=== PATIENT | male | born 1945 | race Caucasian/White ===

== ENCOUNTER 2018-08-03 07:32 | Outpatient (CLI) | payer BC ==
[2018-08-03 08:59] LABS: Mean Corpuscular HGB CONC 31.8 g/dL (32.0-36.0); Mean Corpuscular Hemoglobin 29.9 pg (27.0-31.0); Platelet Count 315 thou/uL (130-400); RBC Distribution Width 12.6 % (11.5-14.5); Red Blood Cell (RBC) Count 4.69 mill/uL (4.70-6.10); White Blood Cell (WBC) Count 7.9 thou/uL (4.8-10.8)
[2018-08-03 09:09] LABS: INR-International Normal Ratio 1.1; PTT 30.6 SEC (22.9-36.1); Prothrombin Time 13.9 SEC (12.0-14.7)
[2018-08-03 09:21] LABS: Anion Gap 12 mmol/L (10-20); BUN (Urea Nitrogen) 17 mg/dL (8.4-25.7); Calc. Creatinine Clearance 0 mL/min (70-130); Calcium 9.3 mg/dL (7.8-10.44); Carbon Dioxide 28 mmol/L (23-31); Chloride 106 mmol/L (98-107); Estimated GFR-MDRD Greater than 90; Glucose 104 mg/dL (80-115); Potassium 4.5 mmol/L (3.5-5.1); Sodium 141 mmol/L (136-145)
== END 2018-08-03 07:33 | disposition home or self-care (01) ==
LOC: LABBT 07:32
PROVIDERS: ATTEND Urology
DX: Z01.812 Encounter for preprocedural laboratory examination (principal); N21.0 Calculus in bladder
CPT/HCPCS: 80048; 85027; 85610; 85730

== ENCOUNTER 2018-08-04 05:56 | Day surgery (SDC) | payer BC ==
[2018-07-31 08:32] VITALS: BMI 20.5
[2018-08-04] MEDS ORDERED: Fentanyl 100 MCG/2 ML VIAL ONE ×3 (06:39→09:23)
[2018-08-04] MEDS ORDERED: Levofloxacin 500 mg/D5W 100 ml Premix Bag ONE (06:51)
[2018-08-04] MEDS ORDERED: Midazolam HCl 2 mg/2 ml Vial ONE (07:35)
[2018-08-04] MEDS ORDERED: traMADol HCl 50 MG TAB ONE (09:18)
--- NOTE | 2018-08-04 09:56 | OP ---
DATE OF PROCEDURE: 08/04/2018 PREOPERATIVE DIAGNOSIS: Bladder stone. POSTOPERATIVE DIAGNOSIS: Bladder stone. PROCEDURE: Cystoscopy, laser lithotripsy bladder stones. SURGEON: Dr. Mendel Merino ANESTHESIA: General. ESTIMATED BLOOD LOSS: Minimal. FINDINGS: There was a large, probably 3-4 cm, maybe larger than that justino stone. No other stones we re seen. He had a small diverticulum on the floor of the bladder. No stone fragments remained. He had 2 ureteral orifices that were clear. He had a large prostate was moderately large intravesical l obe. No evidence of stricture disease. He had no evidence of any bladder tumors. OPERATIVE TECHNIQUE: After obtaining written and verbal consent from the patient after receiving IV Levaquin, he was taken to the operating suite. He was placed in supine position on the treatment tab le. PlexiPulses placed on his lower extremities and turned on. He was given a general anesthetic, o ral obturator intubation. He was placed in the dorsal lithotomy position and he was sterilely preppe d and draped. Cystoscopy was performed with a 22-Swazi sheath. This was well lubricated, passed un sebastian direct vision through the male urethra into the urinary bladder with aid of a 30-degree lens and video camera and monitor. The bladder was filled and emptied a number of times and examined with bot h 30 and a 70 degree lens. At this point, we ahead and brought in a Holmium laser fiber, used this u nder direct vision to fragment the stone trying to keep the pieces quite small, so it is easily to be evacuated. After we had done this and broken it up, we elliked out the fragments, reinspected. We lasered a couple of the larger of the fragments still remaining until they were smaller. Elliked aga in, reinspected and found no significant stone fragments remaining. At this point, the instruments w ere removed. Christina catheter was sterilely inserted, 20 mL placed in the balloon with an 18-Swazi 10 mL balloon with 20 mL in it. It was hooked up to a leg bag. He was taken out of dorsal lithotomy p osition, awakened, extubated, and taken by stretcher to the recovery room.
[2018-08-04] MEDS ORDERED: Lidocaine 1% PF 5 ML VIAL ONE (12:32)
[2018-08-04] MEDS ORDERED: Dexamethasone 20 MG/5 ML VIAL ONE (12:32)
[2018-08-04] MEDS ORDERED: ePHEDrine/0.9% NaCl/PF SYRINGE 50 mg/10 ml ONE (12:32)
[2018-08-04] MEDS ORDERED: Ondansetron PF 4 MG/2 ML Vial ONE (12:32)
[2018-08-04] MEDS ORDERED: Metoclopramide HCl 10 MG/2 ML VIAL ONE (12:32)
[2018-08-04] MEDS ORDERED: PROPOFOL 200 MG/20 ML VIAL ONE (12:32)
== END 2018-08-04 11:35 | disposition home or self-care (01) ==
LOC: SDC 05:56
PROVIDERS: ATTEND Urology
PROC: 0TCB8ZZ Extirpation of Matter from Bladder, Via Natural or Artificial Opening Endoscopic (ICD-10-PCS; principal; 2018-08-04)
DX: N21.0 Calculus in bladder (principal); J44.9 Chronic obstructive pulmonary disease, unspecified; I25.10 Atherosclerotic heart disease of native coronary artery without angina pectoris; Z79.82 Long term (current) use of aspirin; Z79.02 Long term (current) use of antithrombotics/antiplatelets; Z79.899 Other long term (current) drug therapy
CPT/HCPCS: 82365; 88300; 96374; J1100; J1956; J2001; J2250; J2405; J2704; J2765; J3010

== ENCOUNTER 2018-08-08 17:11 | Emergency (ER) | payer BC ==
[2018-08-08] MEDS ORDERED: Lidocaine 4% Topical Sol 50 ML BOT ONE (17:20)
[2018-08-08 17:42] LABS: Bilirubin Negative (Negative); Blood, Urine Trace (Negative); Glucose, Urine (Dipstick) Negative (Negative); Leukocyte Negative (Negative); Nitrite Negative (Negative); Protein, Urine (Dipstick) Negative (Neg-Trace)
[2018-08-08 17:43] LABS: Clarity Hazy (Clear)
[2018-08-08 17:49] LABS: Bacteria/HPF Rare-Few HPF (None Seen); RBC/HPF 0-3 HPF (0-3); Squamous Epithelial None Seen HPF (0-3); WBC/HPF None Seen HPF (0-3)
== END 2018-08-08 18:10 | disposition home or self-care (01) ==
LOC: SCSER 17:11
DX: R33.9 Retention of urine, unspecified (principal)
CPT/HCPCS: 51702; 81003; 81015; 87086; J2001

== ENCOUNTER 2019-06-05 08:39 | Inpatient (IN) | payer BC ==
[2019-06-05 09:31] LABS: #Eosinphils 0.1 thou/uL (0.0-0.7); #Lymphocytes 1.3 thou/uL (1.20-3.40); #Monocytes 1.1 thou/uL (0.11-0.59); #Neutrophils 15.7 thou/uL (1.40-6.50); %Basophils 0.2 % (0.0-1.0); %Eosinophils 0.3 % (0.0-10.0); %Monocytes 5.9 % (0.0-10.0); %Neutrophils 86.6 % (42.0-75.0); Hemoglobin 14.6 g/dL (14.0-18.0); Mean Corpuscular HGB CONC 33.8 g/dL (32.0-36.0); Mean Corpuscular Hemoglobin 31.5 pg (27.0-31.0); Mean Corpuscular Volume 93.1 fL (78.0-98.0); Platelet Count 242 thou/uL (130-400); RBC Distribution Width 12.8 % (11.5-14.5); Red Blood Cell (RBC) Count 4.63 mill/uL (4.70-6.10); White Blood Cell (WBC) Count 18.1 thou/uL (4.8-10.8)
--- NOTE | 2019-06-05 09:44 | RAD ---
PORTABLE CHEST: HISTORY: Shortness of breath. Dizziness. COMPARISON: 03/28/2006 FINDINGS: Heart size is within normal limits. There are atherosclerotic changes of the aorta. The lungs are h yperexpanded. No focal infiltrative process is seen. IMPRESSION: 1. No active intrathoracic disease. 2. Mild hyperexpansion. POS: TPC
[2019-06-05 09:59] LABS: ALT (SGPT) 16 U/L (8-55); AST (SGOT) 17 U/L (5-34); Albumin 4.2 g/dL (3.4-4.8); Alkaline Phosphatase 64 U/L (40-150); Anion Gap 15 mmol/L (10-20); BUN (Urea Nitrogen) 30 mg/dL (8.4-25.7); Bilirubin, Total 0.7 mg/dL (0.2-1.2); Calc. Creatinine Clearance 0 mL/min (70-130); Carbon Dioxide 27 mmol/L (23-31); Chloride 105 mmol/L (98-107); Estimated GFR-MDRD 47; Globulin 2.5 g/dL (2.4-3.5); Glucose 124 mg/dL (83-110); Potassium 3.9 mmol/L (3.5-5.1); Protein, Total 6.7 g/dL (5.8-8.1); Sodium 143 mmol/L (136-145)
[2019-06-05 11:56] LABS: Bilirubin Negative (Negative); Blood, Urine 1+ (Negative); Clarity Turbid (Clear); Glucose, Urine (Dipstick) Normal (Negative); Leukocyte 250 Leu/uL (Negative); Nitrite Negative (Negative); Protein, Urine (Dipstick) 30 mg/dL (Neg-Trace); RBC/HPF 21-50 HPF (0-3); Urobilinogen Normal mg/dL (Less than 2); WBC/HPF 21-50 HPF (0-3)
[2019-06-05 12:10] LABS: Bacteria/HPF 3+ HPF (None Seen); Calcium Oxalate Crystals 1+ HPF (None Seen)
[2019-06-05] MEDS ORDERED: cefTRIAXone\\ROCEPHIN 2 GM VIAL ONE (12:48)
[2019-06-05] MEDS ORDERED: Ondansetron PF 4 MG/2 ML Vial IVP PRN (13:15)
[2019-06-05] MEDS ORDERED: NS 0.9% w/ 40 MEQ KCL 1,000 ML IV SCH ×2 (13:15→19:07)
[2019-06-05] MEDS ORDERED: Labetalol HCl 100 MG/20 ML VIAL SLOW IVP PRN (13:15)
[2019-06-05] MEDS ORDERED: Ondansetron ODT 4 MG TAB PO PRN (13:15)
[2019-06-05] MEDS ORDERED: Acetaminophen 500 MG TAB PO PRN (13:15)
[2019-06-05] MEDS ORDERED: HYDROcodone/Acetaminophen 5/325 mg Tablet PO PRN (13:15)
[2019-06-05 13:17] LABS: Troponin I 0.019 ng/mL (< 0.028)
[2019-06-05] MEDS ORDERED: Nicotine 14 MG PATCH TD SCH (14:00)
[2019-06-05 15:48] LABS: Troponin I 0.031 ng/mL (< 0.028)
[2019-06-05] MEDS: Mometasone/Formoterol 120 PUFF INHALER INH SCH (18:49)
[2019-06-05] MEDS ORDERED: Dronedarone HCl 400 MG TAB PO SCH (19:15)
[2019-06-05] MEDS: Mirtazapine 30 MG TAB PO SCH (20:45)
[2019-06-05] MEDS: Atorvastatin Calcium 10 MG TAB PO SCH (20:46)
[2019-06-05] MEDS: busPIRone HCl 10 MG TAB PO SCH (20:47)
[2019-06-05] MEDS: Enoxaparin Sodium 60 MG/0.6 ML SYRINGE SC SCH (20:48)
[2019-06-05] MEDS: Nicotine 14 MG PATCH TD SCH (20:50)
--- NOTE | 2019-06-05 23:28 | CON ---
DATE OF CONSULTATION: REASON FOR CONSULTATION: Shortness of breath, atrial fibrillation. PRIMARY TERRA COTTA ROOFER: Juana Castle MD HISTORY OF PRESENT ILLNESS: Mr. Julio is a very pleasant 73-year-old gentleman, came to the hospital, brought here by his daughter because he is having increasing trouble breathing. The patient is found to be in atrial fibrillation. Since then, he has been going in and out of fibrillation. His shortness of breath is much worse when he is in fibrillation, it appears and when he goes back in sinus rhythm, he feels like he is "breathing a lot easier." When he goes into atrial fibrillation, the rate is 120 beats per minute on the EKG. The patient is currently in sinus rhythm and says he is feeling much better. PAST MEDICAL HISTORY: 1. History of COPD. 2. He has a history of atrial flutter, ablated many years ago by Dr. Vera. The ablation was done in 2004. 3. I do not see any evidence of coronary procedures. REVIEW OF SYSTEMS: CONSTITUTIONAL: Positive for weakness and fatigue. VISION: No changes. HEARING: No changes. PULMONARY: Positive for shortness of breath. CARDIAC: No chest pain or pressure. He does feel short of breath when he goes in the fibrillation. GI: No nausea, vomiting, or diarrhea. SKIN: No rashes. NEUROLOGIC: No unilateral weakness or numbness. PSYCHIATRIC: No unusual depression or anxiety. MEDICATIONS: At home; 1. He is on Plavix 75 mg a day. 2. Atorvastatin 10 mg a day. 3. Tamsulosin 0.4 mg a day. 4. Finasteride. PHYSICAL EXAMINATION: GENERAL: This is a very pleasant elderly gentleman. He is alert and oriented. He is very cooperative. VITAL SIGNS: Blood pressure 123/61, pulse 76, regular. HEENT: Eyes, sclerae are nonicteric. Mouth, mucous membranes are moist. NECK: Supple. No lymphadenopathy. LUNGS: Clear. No wheezing, rales, or rhonchi. CARDIAC: Normal S1, normal S2. There is no murmur, rub, or gallop. ABDOMEN: Soft, nontender. EXTREMITIES: Warm and dry. No clubbing. No cyanosis. There is no edema. DIAGNOSTIC STUDIES: EKG, he does have atrial fibrillation at times with rate of 120. Other times, the patient is in sinus rhythm. Reviewing the office records, he has had testing done. He had an echocardiogram done. He has had peripheral vascular disease and has had balloon dilatation of his iliacs, it appears and left superficial femoral, also the right iliac, that was in 2018. I do not see the actual echo report. He had a stress test done in 2018 showing no ischemia. ASSESSMENT: 1. Paroxysmal atrial fibrillation associated with worsening breathing. 2. Peripheral vascular disease. 3. Previously normal left ventricular function. 4. Chronic obstructive pulmonary disease. PLAN: 1. Try Multaq. 2. Anticoagulate. 3. Hope probably home in 1-2 days depending how he responses to the medication that he takes. Job ID: [id number]
[2019-06-06 06:17] LABS: #Eosinphils 0.4 thou/uL (0.0-0.7); #Lymphocytes 2.2 thou/uL (1.20-3.40); #Monocytes 0.8 thou/uL (0.11-0.59); #Neutrophils 5.7 thou/uL (1.40-6.50); %Basophils 0.3 % (0.0-1.0); %Eosinophils 3.9 % (0.0-10.0); %Lymphocytes 24.5 % (21.0-51.0); %Monocytes 8.5 % (0.0-10.0); %Neutrophils 62.8 % (42.0-75.0); Hemoglobin 11.6 g/dL (14.0-18.0); Mean Corpuscular HGB CONC 33.6 g/dL (32.0-36.0); Mean Corpuscular Hemoglobin 31.8 pg (27.0-31.0); Mean Corpuscular Volume 94.8 fL (78.0-98.0); Mean Platelet Volume 8.2 fL (7.4-10.4); Platelet Count 200 thou/uL (130-400); RBC Distribution Width 12.7 % (11.5-14.5); Red Blood Cell (RBC) Count 3.64 mill/uL (4.70-6.10); White Blood Cell (WBC) Count 9.1 thou/uL (4.8-10.8)
[2019-06-06 06:51] LABS: Anion Gap 8 mmol/L (10-20); BUN (Urea Nitrogen) 26 mg/dL (8.4-25.7); Calc. Creatinine Clearance 57 mL/min (70-130); Calcium 8.4 mg/dL (7.8-10.44); Carbon Dioxide 25 mmol/L (23-31); Chloride 111 mmol/L (98-107); Estimated GFR-MDRD 82; Glucose 96 mg/dL (83-110); Magnesium 2.1 mg/dL (1.6-2.6); Potassium 3.9 mmol/L (3.5-5.1); Sodium 140 mmol/L (136-145)
[2019-06-06] MEDS: Mometasone/Formoterol 120 PUFF INHALER INH SCH ×2 (07:12→18:46)
--- NOTE | 2019-06-06 08:05 | HP ---
PRIMARY CARE PHYSICIAN: Myself, Dr. Daquan Rey. CHIEF COMPLAINT: Shortness of breath, weakness. HISTORY OF PRESENT ILLNESS: The patient presented to the emergency department for above weakness and shortness of breath, has history of COPD. Chest x-ray was clear on admission. Had sputum production. However, the patient did have a white blood cell count that was elevated, low temperature under cut-off, fever equivalent and had signs of UTI on specimen. The patient does have history of BPH. The patient has been worked up on an outpatient basis for dizziness to presyncope, was tried on several rounds of steroid, antibiotic, meclizine, sent to ENT who felt that it was not strictly vestibular but possibly neurogenic. CT of the head was pending for tomorrow. The patient does have severe claustrophobia. The patient has remote history of atrial fibrillation, which has been inactive for years, patient of Dr. Castle evaluation for potential claudication was referred out to Vascular Surgery. The patient does not feel any palpitations but did have AFib on admission, given IV fluids and a dose of Rocephin and quickly spontaneously resolved. There was no rapid ventricular response component in the emergency department. The patient has been compliant with his aspirin and Plavix on outpatient basis for his prior coronary artery disease history. On review of past medical, social, and surgical history; no known drug allergies. COPD, elevated PSA, intermittent claudication, neuropathy of lower extremities, unintentional weight loss, emphysema, and BPH. Tobacco use, NOS, currently quit approximately 1 to 2 months, on nicotine patch. Actinic keratosis; history of insomnia; major depression, bilateral hearing loss; history of pulmonary nodules. Currently taking meclizine 25 mg p.r.n. for dizziness. Completed steroid taper. Completed Augmentin with ENT. Taking buspirone 30 mg twice daily, atorvastatin 10 mg, nicotine patch 14 mg per 24 hours, Symbicort 160/4.5 mcg 2 inhalations twice daily, Plavix 75 mg daily, aspirin 81 mg daily, tamsulosin 0.4 mg daily, finasteride 5 mg daily, mirtazapine 45. The patient has two daughters who are presently in the emergency department. Otherwise, independent living. MORE FORMAL REVIEW OF SYMPTOMS: Positive chills. Positive fatigue. Positive shortness of breath. No cough. No chest pain. Positive palpitations. No nausea, vomiting, diarrhea, or constipation. Positive lower extremity claudication. No lower extremity edema currently. No confusion or headache. Positive dizziness. No earache or further hearing changes from the patient's baseline deficits. PHYSICAL EXAMINATION: VITAL SIGNS: On arrival to the floor, temperature of 97.5, pulse of 76, respiratory rate of 20, oxygen saturation of 98% on room air, and blood pressure of 122/61. GENERAL: The patient is alert and oriented, in no acute distress. HEENT: Head is normocephalic and atraumatic. Extraocular movements are intact. Sclerae are white. Oral mucosa is moist. NECK: Supple. HEART: Regular rate and rhythm at the time of exam. The patient already converted in the sinus rhythm in the emergency department. LUNGS: Clear to auscultation bilaterally. No rubs or wheezes. ABDOMEN: Soft and nontender. Positive bowel sounds throughout. EXTREMITIES: Lower extremities with diminished dorsalis pedis pulses 1+ each. However, no formal cyanosis. Cap refill within normal limits. NEUROLOGIC: Alert and oriented x3. No focal deficits. Speech is normal. LABORATORY DATA: Laboratory work reviewed. Positive leukocyte esterase, positive rbc's, and positive wbc's in urinalysis. Troponins x3 less than 0.019, 0.03 last at 1500 hours. Lactic acid 1.5. BNP of 357. Sodium of 143, potassium of 3.9, CO2 of 27, creatinine of 1.4, blood glucose of 124, calcium of 10.0, T-bili of 0.7, AST of 17, ALT of 69, alkaline phosphatase of 64, and total albumin of 4.2. White blood cell count of 18.1, hemoglobin of 14.6, platelet count of 242, neutrophil percent of 87. IMAGING DATA: Chest x-ray without acute cardiopulmonary events. Emphysematous changes present at baseline. ASSESSMENT AND PLAN: 1. Sepsis secondary to urinary tract infection, present on admission. Follow up on cultures. Continue Rocephin started in the emergency department. IV fluids to resuscitate. 2. Atrial fibrillation, paroxysmal, may be causing the patient's dizziness spells. We will consult Cardiology for opinion on whether to fully anticoagulate or to provide the patient with stabilizing agent for rhythm. The patient is currently on aspirin and Plavix outpatient with no firm rhythm control. 3. Chronic obstructive pulmonary disease. Continuing baseline medications, Dulera formulary albuterol and DuoNeb p.r.n. patient's dizziness, we will attempt to get MRI while inpatient under sedation instead of CT, which was scheduled for tomorrow. 4. Continuing the patient's tamsulosin for his benign prostatic hyperplasia. 5. Regarding his weight loss and depression, continuing increased mirtazapine and BuSpar on an outpatient basis and inpatient. 6. Elevated troponins likely secondary to heart strain with sepsis and atrial fibrillation. We will trend for the morning and follow up Cardiology's recommendations. We will place the patient on therapeutic Lovenox for the time being. Job ID: [id number] MTDD
[2019-06-06] MEDS: Dronedarone HCl 400 MG TAB PO SCH ×2 (08:13→17:41)
[2019-06-06] MEDS: Aspirin 81 mg Enteric Coated Tablet PO SCH (08:13)
[2019-06-06] MEDS: busPIRone HCl 10 MG TAB PO SCH ×2 (08:13→20:37)
[2019-06-06] MEDS: Finasteride 5 MG TAB PO SCH (08:13)
[2019-06-06] MEDS: Enoxaparin Sodium 60 MG/0.6 ML SYRINGE SC SCH ×2 (08:14→20:37)
[2019-06-06] MEDS: Tamsulosin HCl 0.4 MG CAP PO SCH (08:14)
[2019-06-06] MEDS ORDERED: Mirtazapine 15 MG TAB PO SCH (09:00)
[2019-06-06] MEDS ORDERED: Mirtazapine 30 MG TAB PO SCH (09:00)
[2019-06-06] MEDS ORDERED: Midazolam HCl 2 mg/2 ml Vial ONE (09:28)
--- NOTE | 2019-06-06 10:00 | PDOC.CPN ---
- Subjective Date: 06/06/19 Time: 10:00 Interval history: The pt seen and examined. No overnight events. No cardiac complaints. - Objective Allergies/Adverse Reactions: Allergies Allergy/AdvReac Type Severity Reaction Status Date / Time No Known Allergies Allergy Verified 06/05/19 14:25 Visit Medications: Current Medications Acetaminophen (Tylenol) 1,000 mg PO Q6H PRN PRN Reason: Mild Pain (1-3) Hydrocodone Bitart/Acetaminophen (Larimer 5/325) 2 tab PO Q4H PRN PRN Reason: Severe Pain (7-10) Albuterol/Ipratropium (Duoneb) 3 ml NEB [id number] PRN PRN Reason: SOB &/or Wheezing Aspirin (Ecotrin) 81 mg PO DAILY [facility] Last Admin: 06/06/19 08:13 Dose: 81 mg Atorvastatin Calcium (Lipitor) 10 mg PO HS [facility] Last Admin: 06/05/19 20:46 Dose: 10 mg Buspirone HCl (Buspar) 10 mg PO BID [facility] Last Admin: 06/06/19 08:13 Dose: 10 mg Dronedarone (Multaq) 400 mg PO BID-[facility] Last Admin: 06/06/19 08:13 Dose: 400 mg Enoxaparin Sodium (Lovenox) 50 mg SC 0900,2100 [facility] Last Admin: 06/06/19 08:14 Dose: 50 mg Finasteride (Proscar) 5 mg PO DAILY [facility] Last Admin: 06/06/19 08:13 Dose: 5 mg Ceftriaxone Sodium 2 gm/ (Sodium Chloride) 100 mls @ 200 mls/hr IVPB Q24HR [facility] Labetalol HCl (Normodyne) 20 mg SLOW IVP Q4H PRN PRN Reason: SBP > 180 and HR >/= 70 Mirtazapine (Remeron) 45 mg PO HS [facility] Last Admin: 06/05/19 20:45 Dose: 45 mg Mometasone Furoate/Formoterol Fumar (Dulera 200 Mcg/5 Mcg Inhaler) 2 puff INH BID-RT [facility] Last Admin: 06/06/19 07:12 Dose: 2 puff Nicotine (Nicoderm Patch) 14 mg TD Q24HR [facility] Last Admin: 06/05/19 20:50 Dose: 14 mg Ondansetron HCl (Zofran Odt) 4 mg PO Q6H PRN PRN Reason: Nausea/Vomiting Ondansetron HCl (Zofran) 4 mg IVP Q6H PRN PRN Reason: Nausea/Vomiting Potassium Chloride (K-Dur) 40 meq PO NOW [facility] Stop: 06/06/19 14:00 Tamsulosin HCl (Flomax) 0.4 mg PO DAILY [facility] Last Admin: 06/06/19 08:14 Dose: 0.4 mg Vital Signs & Weight: Vital Signs Temp Pulse Resp BP Pulse Ox 06/06/19 07:35 97.5 F L 69 16 94/51 L 95 06/06/19 07:12 71 14 96 06/06/19 04:10 98.0 F 68 16 124/73 99 06/05/19 23:58 97.3 F L 74 18 114/65 96 Weight 118 lb 4.8 oz - Physical Exam General: alert & oriented x3 Cardiac: regular rate and rhythm, S1/S2 Lungs: decreased breath sounds Skin: clear Musculoskeletal: normal range of motion - Labs Result Diagrams: 06/06/19 05:49 06/06/19 05:49 Troponin/CKMB Troponin I 0.031 ng/mL (< 0.028) H 06/05/19 15:14 - Telemetry Sinus rhythms and dysrhythmias: sinus rhythm - Assessment/Plan Assessment/Plan: 1. Prox Afib with RVR - Converted back to SR around 1400 on ; On Lovenox 50mg BID, Multaq BID. Not on BBlocker due to hx of COPD; waiting for Echo result; will start OAC at discharge 2. Dizziness - the pt will have MRI today 3. HTN - stable 4. PAD with hx of AFRO with STEAM HAND to BLE in 02/2018 - stable; on ASA and Lovenox, which will changed to Plavix at discharge 5. HLD - on Lipitor 6. COPD- stable with RA 7. Current smoker - smoking cessation education given to the pt and family MAR reviewed
--- NOTE | 2019-06-06 10:06 | PRG ---
DATE OF SERVICE: 06/06/2019 SUBJECTIVE: Mr. Julio is feeling well. He has been in sinus rhythm. He has no chest pain or pressure. His breathing has improved. He is up walking in the ureña. OBJECTIVE: VITAL SIGNS: Blood pressure earlier was in the 124/73, most recently 94/50. LUNGS: Clear. CARDIAC: Normal S1, normal S2. ABDOMEN: Soft, nontender. ASSESSMENT: 1. Paroxysmal atrial fibrillation, maintaining sinus rhythm. 2. Mild hypokalemia. Potassium 3.9. PLAN: 1. Okay to discontinue IV fluid. 2. He is on Multaq. 3. We will give him additional potassium. 4. Keep till tomorrow. Dr. Castle to see tomorrow, probably consideration for home tomorrow if doing well. Job ID: [id number]
--- NOTE | 2019-06-06 11:02 | MRI ---
MRI BRAIN WITHOUT CONTRAST: HISTORY: Dizziness. Presyncope. Vestibular neuritis. FINDINGS: No restricted diffusion is seen. There are foci of T2 prolongation in the periventricular white sejal er, consistent with mild chronic small vessel ischemic disease. No evidence of acute infarct, hemorr ludy, midline shift, or abnormal extraaxial fluid collections is noted. The ventricular size is appr opriate and the basilar cisterns are patent. 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 There is mucosal disease in the paranasal sinuses. IMPRESSION: No evidence of acute intracranial process. POS: OFF
[2019-06-06] MEDS ORDERED: Potassium Chloride 20 MEQ TAB PO SCH (12:00)
[2019-06-06] MEDS: cefTRIAXone\\ROCEPHIN 2 GM in Sodium Chloride 0.9% 100 ML IVPB SCH (12:23)
[2019-06-06 16:31] VITALS: BMI 17.4
[2019-06-06] MEDS: Mirtazapine 30 MG TAB PO SCH (20:36)
[2019-06-06] MEDS: Atorvastatin Calcium 10 MG TAB PO SCH (20:37)
[2019-06-06] MEDS: Nicotine 14 MG PATCH TD SCH (20:48)
[2019-06-07 05:26] LABS: Platelet Count 208 thou/uL (130-400)
[2019-06-07 05:54] LABS: Anion Gap 6 mmol/L (10-20); BUN (Urea Nitrogen) 17 mg/dL (8.4-25.7); Calc. Creatinine Clearance 52 mL/min (70-130); Calcium 8.5 mg/dL (7.8-10.44); Carbon Dioxide 27 mmol/L (23-31); Chloride 110 mmol/L (98-107); Estimated GFR-MDRD 75; Glucose 109 mg/dL (83-110); Potassium 4.3 mmol/L (3.5-5.1); Sodium 139 mmol/L (136-145)
[2019-06-07 06:03] LABS: Troponin I Less than 0.010 ng/mL (< 0.028)
[2019-06-07] MEDS: Mometasone/Formoterol 120 PUFF INHALER INH SCH ×2 (07:03→07:10)
[2019-06-07] MEDS: Tamsulosin HCl 0.4 MG CAP PO SCH (08:10)
[2019-06-07] MEDS: Dronedarone HCl 400 MG TAB PO SCH (08:10)
[2019-06-07] MEDS: Enoxaparin Sodium 60 MG/0.6 ML SYRINGE SC SCH (08:10)
[2019-06-07] MEDS: busPIRone HCl 10 MG TAB PO SCH (08:10)
[2019-06-07] MEDS: Finasteride 5 MG TAB PO SCH (08:10)
[2019-06-07] MEDS: Aspirin 81 mg Enteric Coated Tablet PO SCH (08:10)
--- NOTE | 2019-06-07 08:19 | PDOC.CPN ---
- Subjective Date: 06/07/19 Time: 08:19 Interval history: The pt seen and examined. No overnight events. No cardiac complaints. He has been in SR for more than 24hrs. He denied dizziness or lightheadedness since yesterday. - Objective Allergies/Adverse Reactions: Allergies Allergy/AdvReac Type Severity Reaction Status Date / Time No Known Allergies Allergy Verified 06/05/19 14:25 Visit Medications: Current Medications Acetaminophen (Tylenol) 1,000 mg PO Q6H PRN PRN Reason: Mild Pain (1-3) Hydrocodone Bitart/Acetaminophen (Chloe 5/325) 2 tab PO Q4H PRN PRN Reason: Severe Pain (7-10) Albuterol/Ipratropium (Duoneb) 3 ml NEB [id number] PRN PRN Reason: SOB &/or Wheezing Aspirin (Ecotrin) 81 mg PO DAILY [facility] Last Admin: 06/07/19 08:10 Dose: 81 mg Atorvastatin Calcium (Lipitor) 10 mg PO HS [facility] Last Admin: 06/06/19 20:37 Dose: 10 mg Buspirone HCl (Buspar) 10 mg PO BID [facility] Last Admin: 06/07/19 08:10 Dose: 10 mg Dronedarone (Multaq) 400 mg PO BID[facility] Last Admin: 06/07/19 08:10 Dose: 400 mg Enoxaparin Sodium (Lovenox) 50 mg SC 0900,2100 [facility] Last Admin: 06/07/19 08:10 Dose: 50 mg Finasteride (Proscar) 5 mg PO DAILY [facility] Last Admin: 06/07/19 08:10 Dose: 5 mg Ceftriaxone Sodium 2 gm/ (Sodium Chloride) 100 mls @ 200 mls/hr IVPB Q24HR [facility] Last Admin: 06/06/19 12:23 Dose: 100 mls Labetalol HCl (Normodyne) 20 mg SLOW IVP Q4H PRN PRN Reason: SBP > 180 and HR >/= 70 Mirtazapine (Remeron) 45 mg PO HS [facility] Last Admin: 06/06/19 20:36 Dose: 45 mg Mometasone Furoate/Formoterol Fumar (Dulera 200 Mcg/5 Mcg Inhaler) 2 puff INH BID-[facility] Last Admin: 06/07/19 07:10 Dose: 2 puff Nicotine (Nicoderm Patch) 14 mg TD Q24HR [facility] Last Admin: 06/06/19 20:48 Dose: Not Given Ondansetron HCl (Zofran Odt) 4 mg PO Q6H PRN PRN Reason: Nausea/Vomiting Ondansetron HCl (Zofran) 4 mg IVP Q6H PRN PRN Reason: Nausea/Vomiting Tamsulosin HCl (Flomax) 0.4 mg PO DAILY [facility] Last Admin: 06/07/19 08:10 Dose: 0.4 mg Vital Signs & Weight: Vital Signs Temp Pulse Resp BP BP Pulse Ox 06/07/19 07:15 97.7 F 63 16 158/82 H 97 06/07/19 07:10 78 16 97 06/07/19 03:40 98.0 F 70 16 122/69 94 L 06/06/19 20:21 97.6 F 71 20 152/78 H 99 Admit Weight 115 lb 14.4 oz Weight 118 lb 4.8 oz - Physical Exam General: alert & oriented x3 Neck: supple neck Cardiac: regular rate and rhythm, S1/S2 Lungs: clear to auscultation, decreased breath sounds Neuro: cranial nerve 2-12 intact Skin: clear Musculoskeletal: normal range of motion - Labs Result Diagrams: 06/07/19 04:55 06/07/19 04:55 Troponin/CKMB Troponin I Less than 0.010 ng/mL (< 0.028) 06/07/19 04:55 - Telemetry Sinus rhythms and dysrhythmias: sinus rhythm - Assessment/Plan Assessment/Plan: 1. Prox Afib with RVR - Converted back to SR around 1400 on 06/05/2019; On Multaq BID and Lovenox BID which will be changed to Eliquis 5mg BID. Not on BBlocker due to hx of COPD; waiting for Echo result; will start OAC at discharge 2. Dizziness - No symptoms overnight 3. HTN - stable 4. PAD with hx of AFRO with TOOL PROCUREMENT COORDINATOR to BLE in 02/2018 - stable; on ASA and Lovenox, which will changed to Plavix at discharge 5. HLD - on Lipitor 6. COPD- stable with RA 7. Current smoker - smoking cessation education given to the pt and family MAR reviewed * From Cardiac standpoint, the pt is stable to d/c home. The pt will f/u with Dr Castle' office within 2 wks. * Cont. Multaq and Eliquis for 1 month and may stop if no more recurrent afib. Pt. seen and eval. by me. I agree with the A/P by the PLATE SENSITIZER. Chest clear. RRR. Okay to d/c.
[2019-06-07] MEDS: cefTRIAXone\\ROCEPHIN 2 GM in Sodium Chloride 0.9% 100 ML IVPB SCH (12:46)
[2019-06-07 15:24] VITALS: BP 116/66; TEMP 98.1
[2019-06-07] MEDS ORDERED: Apixaban 5 MG TAB PO SCH (21:00)
[2019-06-08] MEDS ORDERED: Clopidogrel Bisulfate 75 MG TAB PO SCH (09:00)
--- NOTE | 2019-06-08 12:32 | DIS ---
DATE OF ADMISSION: 06/05/2019 DATE OF DISCHARGE: 06/07/2019 CHIEF COMPLAINT: Fatigue, shortness of breath. HISTORY OF PRESENT ILLNESS: The patient was found to be in atrial fibrillation with RVR, which spontaneously converted with IV fluids. The patient met sepsis criteria with UTI source treated with Rocephin while inpatient, improved greatly. He has a history of underlying BPH, which he takes Flomax and tamsulosin for, has been worked up on outpatient basis for ear effusion and possible ENT causes of vestibular dizziness. However, ENT referral did not seem to think it was secondary to the patient's ears. The patient had been established with Cardiology previously for atrial fibrillation, was supposed to be worked up for varicose veins and lower extremity edema, and did not feel we were able to discontinue the patient's tamsulosin. Regarding dizziness, ENT felt we needed to check the patient's head for any neurogenic causes since he had already established with Cardiology for cardiogenic causes. The patient has lost weight over the last year, most of which was attributed to depression. The patient was placed on mirtazapine multiple months ago, did show signs of stress elevation in troponin with atrial fibrillation. 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 No tumors found or acute processes that would explain the patient's dizziness. The patient discharged with event monitor with acute followup. Follow up with Cardiology in approximately 1 to 2 weeks. Follow up with myself, Dr. Daquan Rey, in 3 days post discharge. Echocardiogram showed preserved ejection fraction. Discharge with supplemental shakes, MightyShakes t.i.d., otherwise heart healthy diet. DISCHARGE MEDICATIONS: Include: 1. Atorvastatin 10 mg. 2. Buspirone 30 mg b.i.d. 3. Finasteride 5 mg daily. 4. Mirtazapine 45 mg daily. 5. Tamsulosin 0.4 mg. 6. Eliquis 5 mg b.i.d. 7. Multaq 400 mg b.i.d. 8. Dulera formulary substitute for patient's Symbicort outpatient basis two puffs twice daily. 9. Inhalation NicoDerm patch. The patient is attempting to quit tobacco of 40 mg daily. DISCHARGE CONDITION: Fair. Thank you very much. Job ID: [id number]
--- NOTE | 2019-06-09 00:05 | PQF ---
[facility] Infection Prevention Coordinator Crystal Reports Winform Viewer CHELSEYTERRY DIODAQUAN [id number] [address] [place] [address] [id number] CLINICAL DOCUMENTATION CLARIFICATION FORM: POST DISCHARGE Addendum to original discharge summary date: ____ Late entry note date: __ DATE 06/08/19 ATTN: Daquan Durham Please exercise your independent, professional judgment in responding to the clarification form. Clinical indicators are provided on the bottom of this form for your review Can you please further specify the diagnosis base on the clinical indicators below? Please check appropriate box(s): [ ] Hypovolemic Shock [ ] Cardiogenic Shock [ ] Septic Shock [ ] Shock Unspecified [ x ] No Shock [ ] Other diagnosis please specify [ ] Unable to determine In addition, please specify: Present on Admission (POA): [ ] Yes [ ] No [ ] Unable to determine For continuity of documentation, please document condition throughout progress notes and discharge summary. Thank You. CLINICAL INDICATORS - SIGNS / SYMPTOMS / LABS ED Records 06/05 "BP: 92/47 Pulse: 113" ED Records 06/05 "patient presents for evaluation of SOB" ED Records 06/05 "report fatigue and weakness" HP 06/05 "patient did have a WBC count that was elevated, low temperature" HP 06/05 "atrial fibrillation,paroxysmal, may be causing the patient's dizziness " HP 06/05 "elevated troponin likely secondary to heart strain with sepsis and atrial fibrillation" Consult 06/05 "pulse rate is 120 beats per minute on the EKG" Labs: Hgb 06/06:11.6 06/07:11.0 Labs: Hct 06/06:34.5 06/07:32.5 Labs: BUN 06/06:26 RISK FACTORS HP 06/05 - Smoker HP 06/05 - BPH HP 06/05 - Sepsis HP 06/05 - UTI HP 06/05 - Paroxysmal Afib 06/05 - CAD Consult 06/05 - 73 years old TREATMENTS: Urinalysis-06/05 IVF resuscitation-06/05 Cardiology consult-Consult 06/05 Consult 06/05-EKG Rocephin 2gm IV-NOV 25 Mutaq 400mg Oral-NOV 25 (This form is maintained as a part of the permanent medical record) 2014 [employer]. All Rights Reserved [email or web address] [not provided] MTDD
--- NOTE | 2019-06-09 13:28 | EKG ---
Test Reason : Blood Pressure : / mmHG Vent. Rate : 122 BPM Atrial Rate : 131 BPM P-R Int : 000 ms QRS Dur : 078 ms QT Int : 300 ms P-R-T Axes : 000 081 077 degrees QTc Int : 427 ms Atrial fibrillation with rapid ventricular response Moderate voltage criteria for LVH, may be normal variant ST depression, consider subendocardial injury Abnormal ECG Confirmed by ELEONORA RIDDLE MD ([id number]), editor book ALANIS BURLESON ([id number]) on 06/09/2019 1:28:26 PM Referred By: Confirmed By:ELEONORA RIDDLE MD
--- NOTE | 2019-06-09 13:28 | EKG ---
Test Reason : REPEAT EKG Blood Pressure : / mmHG Vent. Rate : 113 BPM Atrial Rate : 113 BPM P-R Int : 132 ms QRS Dur : 082 ms QT Int : 334 ms P-R-T Axes : 080 080 078 degrees QTc Int : 458 ms Sinus tachycardia Otherwise normal ECG Confirmed by VENKATESH WILSON, ELEONORA ([id number]), editor map ALANIS BURLESON ([id number]) on 06/09/2019 1:28:35 PM Referred By: MD RIDDLE Confirmed By:ELEONORA RIDDLE MD
== END 2019-06-07 15:24 | disposition home or self-care (01) | DRG 872 ==
LOC: ERS 08:39 → OBSVTOIN 12:01 → 2SW 12:01 → 2NO 06-06 17:22
PROVIDERS: ADMIT Family Medicine; ATTEND Family Medicine
DX: A41.9 Sepsis, unspecified organism (principal); F33.9 Major depressive disorder, recurrent, unspecified; N39.0 Urinary tract infection, site not specified; I50.9 Heart failure, unspecified; N40.0 Benign prostatic hyperplasia without lower urinary tract symptoms; I48.0 Paroxysmal atrial fibrillation; I25.10 Atherosclerotic heart disease of native coronary artery without angina pectoris; G62.9 Polyneuropathy, unspecified; J43.9 Emphysema, unspecified; L57.0 Actinic keratosis; H91.93 Unspecified hearing loss, bilateral; I73.9 Peripheral vascular disease, unspecified; E87.6 Hypokalemia; I11.0 Hypertensive heart disease with heart failure; F17.210 Nicotine dependence, cigarettes, uncomplicated; Z79.02 Long term (current) use of antithrombotics/antiplatelets; Z79.82 Long term (current) use of aspirin; Z79.51 Long term (current) use of inhaled steroids
CPT/HCPCS: 36415; 70551; 71045; 80048; 80053; 81003; 81015; 83605; 83735; 83880; 84484; 85014; 85018; 85025; 85049; 87040; 87086; 93005; 93306; 94760; J0696; J1650; J2250; J3480; J3490

== ENCOUNTER 2021-02-25 10:24 | Outpatient (CLI) | payer BC ==
[2021-02-25 11:53] LABS: Bilirubin Neg (Negative); Blood, Urine 250 (Negative); Clarity Cloudy (Clear); Glucose, Urine (Dipstick) Normal (Negative); Ketone, Urine Negative (Negative); Leukocyte 25 (Negative); Nitrite Negative (Negative); Protein, Urine (Dipstick) 15 mg/dl (Neg-Trace); Specific Gravity, Urine 1.015 (1.002-1.036); Urobilinogen Normal mg/dL (Less than 2)
[2021-02-25 12:15] LABS: Bacteria/HPF None Seen HPF (None Seen); Mucous/LPF 1+ LPF (<2+); RBC/HPF Greater than 50 HPF (0-3); Squamous Epithelial 0-3 HPF (0-3); WBC/HPF 0-3 HPF (0-3)
[2021-02-25 12:56] LABS: Hemoglobin 13.1 g/dL (13.5-17.5); Mean Corpuscular HGB CONC 33.5 g/dL (32.0-36.0); Mean Corpuscular Hemoglobin 30.1 pg (27.0-33.0); Mean Corpuscular Volume 89.9 fl (81.2-95.1); Mean Platelet Volume 10.8 fl (7.4-10.4); Platelet Count 279 10x3/uL (150-450); RBC Distribution Width 13.3 % (11.5-14.5); Red Blood Cell (RBC) Count 4.35 10x6/uL (4.32-5.72); White Blood Cell (WBC) Count 7.9 10x3/uL (3.5-10.5)
[2021-02-25 13:18] LABS: INR-International Normal Ratio 1.1; PTT 28.2 sec (22.0-33.0); Prothrombin Time 11.9 sec (9.5-12.1)
[2021-02-25 13:21] LABS: Anion Gap 14 mmol/L (10-20); BUN (Urea Nitrogen) 24 mg/dL (8.4-25.7); Calc. Creatinine Clearance 0 mL/min (70-130); Calcium 9.6 mg/dL (7.8-10.44); Carbon Dioxide 26 mmol/L (23-31); Chloride 106 mmol/L (98-107); Glucose 108 mg/dL (83-110); Potassium 4.5 mmol/L (3.5-5.1); Sodium 141 mmol/L (136-145)
[2021-02-25 21:38] LABS: SARS-CoV-2 PCR by NAA Not Detected (NotDetected)
== END 2021-02-25 10:25 | disposition home or self-care (01) ==
LOC: LABBT 10:24
PROVIDERS: ATTEND Urology
DX: Z01.812 Encounter for preprocedural laboratory examination (principal); N21.0 Calculus in bladder; N40.0 Benign prostatic hyperplasia without lower urinary tract symptoms; Z20.822 Contact with and (suspected) exposure to COVID-19
CPT/HCPCS: 80048; 81001; 85027; 85610; 85730; 87086; U0003; U0005

== ENCOUNTER 2021-03-02 06:01 | Inpatient (IN) | payer BC, MEDICARE ==
[2021-03-02] MEDS ORDERED: Famotidine/PF 20 mg/2ml Vial ONE (06:19)
[2021-03-02] MEDS ORDERED: Fentanyl 100 MCG/2 ML VIAL ONE ×4 (06:19→09:55)
[2021-03-02] MEDS ORDERED: Levofloxacin 500 mg/D5W 100 ml Premix Bag ONE (06:45)
[2021-03-02] MEDS ORDERED: Lidocaine 1% PF 5 ML VIAL ONE (07:28)
[2021-03-02] MEDS ORDERED: PROPOFOL 200 MG/20 ML VIAL ONE (07:28)
[2021-03-02] MEDS ORDERED: Ondansetron PF 4 MG/2 ML Vial ONE (07:28)
[2021-03-02] MEDS ORDERED: Metoclopramide HCl 10 MG/2 ML VIAL ONE (07:28)
[2021-03-02] MEDS ORDERED: ePHEDrine Sulfate 50 MG/10 ML VIAL ONE (07:28)
[2021-03-02] MEDS ORDERED: Ondansetron HCl/PF 4 MG/2 ML Vial IVP PRN (08:40)
[2021-03-02] MEDS ORDERED: Promethazine HCl 25 MG/ML VIAL SLOW IVP PRN (08:40)
[2021-03-02] MEDS ORDERED: Acetaminophen 500 MG TAB PO PRN (09:12)
[2021-03-02] MEDS ORDERED: B & O PR PRN (09:17)
[2021-03-02] MEDS ORDERED: Mometasone 200 MCG/Formoterol 5 MCG 120 PUFF INHALER INH PRN (09:22)
[2021-03-02] MEDS ORDERED: B & O ONE (09:45)
[2021-03-02] MEDS: traMADol HCl 50 MG TAB PO PRN ×2 (11:08→21:06)
[2021-03-02] MEDS: D5 0.9% NS w/ 20 mEq KCl 1,000 ML IV SCH ×2 (11:09→23:36)
[2021-03-02 11:12] VITALS: BMI 19.1
[2021-03-02] MEDS: Mirtazapine 15 MG TAB PO SCH (21:08)
[2021-03-02] MEDS: busPIRone HCl 10 MG TAB PO SCH (21:08)
[2021-03-02] MEDS: Atorvastatin Calcium 10 MG TAB PO SCH (21:08)
[2021-03-02] MEDS: Docusate 100 MG CAP PO SCH (21:08)
[2021-03-03] MEDS: traMADol HCl 50 MG TAB PO PRN ×2 (02:56→20:45)
[2021-03-03] MEDS: Finasteride 5 MG TAB PO SCH (09:44)
[2021-03-03] MEDS: Docusate 100 MG CAP PO SCH ×2 (09:44→20:46)
[2021-03-03] MEDS: busPIRone HCl 10 MG TAB PO SCH (20:45)
[2021-03-03] MEDS: Atorvastatin Calcium 10 MG TAB PO SCH (20:45)
[2021-03-03] MEDS: Mirtazapine 15 MG TAB PO SCH (20:45)
[2021-03-03] MEDS ORDERED: ALPRAZolam 0.5 MG TAB PO SCH (23:45)
[2021-03-04] MEDS: Finasteride 5 MG TAB PO SCH (09:59)
[2021-03-04] MEDS: Docusate 100 MG CAP PO SCH (09:59)
[2021-03-04 11:45] VITALS: BP 116/67; TEMP 97.5
== END 2021-03-04 15:24 | disposition home or self-care (01) | DRG 714 ==
LOC: SDC 06:01 → SURG A 09:12
PROVIDERS: ADMIT Urology; ATTEND Urology
PROC: 0VT08ZZ Resection of Prostate, Via Natural or Artificial Opening Endoscopic (ICD-10-PCS; principal; 2021-03-02)
PROC: 0TCB8ZZ Extirpation of Matter from Bladder, Via Natural or Artificial Opening Endoscopic (ICD-10-PCS; 2021-03-02)
DX: N40.1 Benign prostatic hyperplasia with lower urinary tract symptoms (principal); N21.0 Calculus in bladder; Z20.822 Contact with and (suspected) exposure to COVID-19; J43.9 Emphysema, unspecified; F17.210 Nicotine dependence, cigarettes, uncomplicated; F32.9 Major depressive disorder, single episode, unspecified; E78.5 Hyperlipidemia, unspecified; G62.9 Polyneuropathy, unspecified; M19.90 Unspecified osteoarthritis, unspecified site; F41.9 Anxiety disorder, unspecified; R33.8 Other retention of urine; I48.91 Unspecified atrial fibrillation; Z79.01 Long term (current) use of anticoagulants; Z79.899 Other long term (current) drug therapy
CPT/HCPCS: 88305; J1956; J2405; J2704; J2765; J3010; J3480; S0028

== ENCOUNTER 2021-07-03 07:34 | Outpatient (CLI) | payer BC | END 2021-07-03 07:35 | disposition home or self-care (01) | LOC: BICCT 07:34 | PROVIDERS: ATTEND Family Medicine | DX: Z12.2 Encounter for screening for malignant neoplasm of respiratory organs (principal); F17.210 Nicotine dependence, cigarettes, uncomplicated; R91.8 Other nonspecific abnormal finding of lung field | CPT/HCPCS: 71271 ==

== ENCOUNTER 2022-02-08 15:29 | Outpatient (CLI) | payer BC ==
[2022-02-09 00:03] LABS: SARS-CoV-2 PCR by NAA Not Detected (NotDetected)
== END 2022-02-08 15:30 | disposition home or self-care (01) ==
LOC: LABBT 15:29
PROVIDERS: ATTEND Family Medicine
DX: Z20.822 Contact with and (suspected) exposure to COVID-19 (principal)
CPT/HCPCS: U0003; U0005

== ENCOUNTER 2022-02-12 11:51 | Outpatient (CLI) | payer BC ==
[2022-02-12] MEDS ORDERED: Midazolam HCl 2 mg/2 ml Vial ONE (14:05)
== END 2022-02-12 11:52 | disposition home or self-care (01) ==
LOC: SDC 11:51
PROVIDERS: ATTEND Family Medicine
DX: G45.9 Transient cerebral ischemic attack, unspecified (principal); R93.89 Abnormal findings on diagnostic imaging of other specified body structures; J43.9 Emphysema, unspecified; J42 Unspecified chronic bronchitis; R91.1 Solitary pulmonary nodule; J98.4 Other disorders of lung
CPT/HCPCS: 71250; 93880; J2250

== ENCOUNTER 2022-03-11 07:01 | Outpatient (CLI) | payer BC | END 2022-03-11 07:02 | disposition home or self-care (01) | LOC: LABBT 07:01 | PROVIDERS: ATTEND Family Medicine | DX: Z20.822 Contact with and (suspected) exposure to COVID-19 (principal) | CPT/HCPCS: U0003; U0005 ==